=== PATIENT | female | born 1970 | race Two or more races ===

== ENCOUNTER 2022-07-22 13:06 | Day surgery (SDC) | payer MEDICAID ==
[2022-07-20 11:39] LABS: Basophils # (auto) 0.2 10 ^3/uL (0-0.2); Basophils % (auto) 3.6 % (0.0-2.0); Eosinophils # (auto) 0.1 10 ^3/uL (0-0.8); Eosinophils % (auto) 1.3 % (0.0-7.0); Hematocrit 40.3 % (36.0-46.0); Hemoglobin 13.3 g/dL (12.2-16.2); Lymphocytes # (auto) 1.8 10 ^3/uL (0.4-5.4); Mean Corpuscular Hemoglobin 30.6 pg (28.0-32.0); Mean Corpuscular Volume 92.7 fL (80.0-100.0); Monocytes # (auto) 0.3 10 ^3/uL (0-1.3); Monocytes % (auto) 5.7 % (0.0-12.0); Neutrophils # (auto) 3.4 10 ^3/uL (1.6-8.6); Neutrophils % (auto) 58.4 % (37.0-80.0); Nucleated Red Blood Cells % 0.2 %; Red Blood Cells 4.35 10^6/uL (4.0-5.20); Red Cell Distribution Width 17.2 % (11.8-14.3); White Blood Cell 5.9 10^3/uL (4.4-10.8)
[2022-07-20 11:54] LABS: INR 0.94 (0.9-1.15); Partial Thromboplastin Time 29.4 sec (24.6-33.4)
[2022-07-20 12:41] LABS: Albumin 3.7 g/dL (3.4-5.0); Calcium 9.3 mg/dL (8.5-10.1); Potassium 4.3 mmol/L (3.5-5.1)
[2022-07-20 12:43] LABS: BUN/Creatinine Ratio 22.6
[2022-07-20 12:46] LABS: Bilirubin, Total 0.2 mg/dL (0.2-1.0); Total Protein 7.9 g/dL (6.4-8.2)
[~2022-07-22] VITALS: Ht 152.4 cm; Wt 93.0 kg
[~2022-07-22 13:06] MED LIST: FAMO20TA10 PO; LIDOCAINE VISCOUS 2% 15ML UD ONE; METF-489 PO
[2022-07-22] MEDS: diphenhdrAMINE HCL 50 MG/1 ML VL ONE ×2 (13:44→13:48)
[2022-07-22] MEDS: MIDAZOLAM HCL 2MG/2ML 2ml VIAL (1mg/ml) ONE ×2 (13:44→13:49)
[2022-07-22] MEDS: fentaNYL CITRATE 100 MCG/2 ML VL ONE ×2 (13:44→13:49)
[2022-07-22 14:35] VITALS: BP 135/77
== END 2022-07-22 14:52 | disposition home or self-care (01) ==
LOC: GI 13:06
PROVIDERS: ATTEND Internal Medicine Gastroenterology
DX: R10.13 Epigastric pain (principal); K21.00 Gastro-esophageal reflux disease with esophagitis, without bleeding; K29.50 Unspecified chronic gastritis without bleeding; K29.80 Duodenitis without bleeding; K31.7 Polyp of stomach and duodenum; E11.9 Type 2 diabetes mellitus without complications; Z98.891 History of uterine scar from previous surgery; Z98.890 Other specified postprocedural states; Z20.822 Contact with and (suspected) exposure to COVID-19
CPT/HCPCS: 36415; 43239; 80053; 81025; 82962; 84702; 85025; 85610; 85730; J1200; J2250; J3010; J7030; U0003; 99152